=== PATIENT | male | born 1940 | race Caucasian/White ===

== ENCOUNTER → 2017-02-13 | Outpatient (CLI) | payer MEDICARE ==
[2017-02-13 13:22] LABS: BASOPHIL# 0.1 X10e3 (0-0.3); BASOPHIL% 0.7 % (0-2.5); EOSINOPHIL# 0.2 X10e3 (0-0.7); EOSINOPHIL% 2.1 % (0.0-7.0); HEMATOCRIT 41.6 % (38.0-50.0); HEMOGLOBIN 13.6 gm/dL (13.0-16.0); LYMPHOCYTE# 2.6 X10e3 (1.0-3.5); LYMPHOCYTE% 22.9 % (17.0-45.0); MEAN CELL VOLUME 83.3 FL (83-96); MEAN CORPUSCULAR HEMOGLOBIN 27.2 PG (28-34); MEAN CORPUSCULAR HGB CONC 32.6 g/dL (30-36); MEAN PLATELET VOLUME 7.2 FL (6.5-11.5); MONOCYTE# 0.8 X10e3 (0-1.0); MONOCYTE% 7.2 % (3.0-12.0); NEUTROPHIL# 7.5 X10e3 (1.5-7.1); NEUTROPHIL% 67.1 % (40-75); PLATELET COUNT 350 X10e3 (140-420); RED CELL DISTRIBUTION WIDTH 15.1 % (11.0-15.5); WHITE BLOOD COUNT 11.2 X10e3 (4.0-10.5)
[2017-02-13 13:23] LABS: DIFF IND YES
[2017-02-13 13:31] LABS: URINE APPEARANCE CLEAR; URINE BILIRUBIN NEG (NEG); URINE BLOOD 1+ (NEG); URINE COLOR YELLOW; URINE GLUCOSE NEG (NEG); URINE KETONE NEG (NEG); URINE LEUKOCYTE ESTERASE 1+ (NEG); URINE NITRATE NEG (NEG); URINE PROTEIN NEG (NEG); URINE SPECIFIC GRAVITY 1.013 (1.003-1.035); URINE UROBILINOGEN 0.2 MG/DL (NEG)
[2017-02-13 13:34] LABS: CREATININE,RANDOM URINE 94 mg/dL; TOTAL PROTEIN,RANDOM URINE 14 mg/dl (<10); URBCS1 AUWI 0-2 /[HPF] (0-2); URINE BACTERIA AUWI NEG (NEGATIVE); URINE SQUAMOUS EPITHELIAL CELL NONE SEEN /[HPF]
[2017-02-13 13:35] LABS: URINE SOURCE CLEAN CATCH
[2017-02-13 13:42] LABS: ALBUMIN SERUM 3.5 g/dL (3.5-5.0); ALKALINE PHOSPHATASE 132 U/L (32-92); ALT (SGPT) 37 U/L (10-40); AST (SGOT) 20 U/L (10-42); BILIRUBIN,TOTAL 0.3 mg/dL (0.2-2.0); BLOOD UREA NITROGEN 53 mg/dL (9-23); BUN/CREATININE RATIO 19.62; CALCIUM SERUM 9.6 mg/dL (8.4-10.2); CARBON DIOXIDE 23 mmol/L (22-31); CHLORIDE 98 mmol/L (100-111); CREATININE SERUM 2.7 mg/dL (0.6-1.4); GLOM FILT RATE Estimated 21.9 mL/min (>60); GLUCOSE FASTING 122 mg/dL (70-110); PHOSPHOROUS 4.2 mg/dL (2.5-4.6); POTASSIUM 4.6 mmol/L (3.5-5.1); PROTEIN TOTAL SERUM 7.6 g/dL (6.0-8.3); SODIUM 132 mmol/L (135-145)
[2017-02-13 13:43] LABS: BILIRUBIN, DIRECT <0.1 mg/dL (0.0-0.2)
[2017-02-13 14:03] LABS: ANISOCYTOSIS SL; PLATELET ESTIMATE NORMAL (NORMAL)
[2017-02-15 03:39] LABS: COMPLEMENT C3 181 mg/dL (90-180); COMPLEMENT C4 40 mg/dL (16-47)
[2017-02-19 14:25] LABS: ANA SCREEN Negative (Negative); CALCIUM (PTHINTACT) 9.6 mg/dL (8.6-10.3); MYELOPEROXIDASE AB (PNL) <1.0 AI (<1.0); PROTEINASE-3 AB (PNL) <1.0 AI (<1.0); SPE A1GLOB (PNL) 0.5 g/dL (0.2-0.3); SPE A2GLOB (PNL) 1.2 g/dL (0.5-0.9); SPE ALB (PNL) 3.3 g/dL (3.8-4.8); SPE BETA 1 GLOBULIN 0.5 g/dL (0.4-0.6); SPE BETA 2 GLOBULIN 0.4 g/dL (0.2-0.5); SPE GAMMA (PNL) 1.3 g/dL (0.8-1.7); SPETP (PNL) 7.1 g/dL (6.1-8.1)
== END | disposition home or self-care (01) ==
LOC: CLAB 12:26
PROVIDERS: Internal Medicine Nephrology
DX: N18.3 Chronic kidney disease, stage 3 (moderate) (principal)
CPT/HCPCS: 36415; 80053; 81003; 82248; 82310; 82570; 83520; 83970; 84100; 84156; 84165; 85025; 86021; 86038; 86039; 86160; 86334; 87086

== ENCOUNTER → 2017-02-23 | Outpatient (CLI) | payer MEDICARE ==
--- NOTE | ~2017-02-23 | US77 ---
[facility] A Service of [facility] RADIOLOGY TEXT RESULTS PATIENT: CHERYL FENTON LOCATION: [facility] : 40 UNIT #: [id number] AGE: [address]: Ignacio Chatterjee MD SEX: M ORDER DR: [id number] [facility] [address] [place], [place] [address] [id number] O MR#: [id number] Acc #: [id number] NAME: CHERYL FENTON : 1940 SEX: M STUDY DATE/TIME: 02/23/2017 13:06 UNIT: [facility] ROOM: STUDY DESCRIPTION: US Kidney Bilateral Complete Attending Physician: Ignacio Chatterjee M.D. Referring Physician: Ignacio Chatterjee M.D. Ordering Physician: Ignacio Chatterjee M.D. Primary Care Physician: Vipul Quintero M.D. MEDICAL IMAGING REPORT This report is preliminary unless electronic signature is present EXAM Renal ultrasound INDICATIONS Chronic kidney disease stage III PROCEDURE Berkowitz-scale and Doppler imaging of the kidneys and bladder COMPARISON None FINDINGS Right kidney measures 10.9 cm. Cortical thickness, 11 mm. There is right-sided hydronephrosis. 7.7 cm cyst exophytic from the right kidney. Unremarkable bladder. Left kidney measures 12.9 cm in length. Cortical thickness 11 mm. Slightly increased echotexture in both kidneys. No hydronephrosis. Incidentally noted distal abdominal aorta measures up to 4.4 cm. IMPRESSION 1. Right-sided hydronephrosis. Right cortical thickness measures within normal limits but does appear to be thickened suggesting some changes of longstanding hydronephrosis. 2. Both kidneys show slightly increased echotexture in keeping with changes of chronic renal disease. 3. Distal abdominal aortic aneurysm. Dictated by... Jac Lundy M.D. THIS IS AN ELECTRONICALLY VERIFIED REPORT [facility] A Service of [facility] RADIOLOGY TEXT RESULTS PATIENT: CHERYL FENTON LOCATION: [facility] : 40 UNIT #: [id number] AGE: [address]: Ignacio Chatterjee MD SEX: M ORDER DR: Jac Lundy M.D. at 02/24/2017 7:08 AM EED/to TD: 02/23/2017 20:05 JOB #: [id number] MEDICAL IMAGING REPORT Page 1 of 1 COPY
== END | disposition home or self-care (01) ==
LOC: CGUS 12:16
DX: N18.3 Chronic kidney disease, stage 3 (moderate) (principal); R93.421 Abnormal radiologic findings on diagnostic imaging of right kidney; N13.30 Unspecified hydronephrosis; R93.422 Abnormal radiologic findings on diagnostic imaging of left kidney; I71.4 Abdominal aortic aneurysm, without rupture
CPT/HCPCS: 76770

== ENCOUNTER → 2017-05-04 | Outpatient (CLI) | payer MEDICARE ==
[2017-05-04 11:33] LABS: BUN/CREATININE RATIO 16.31; CALCIUM SERUM 9.6 mg/dL (8.4-10.2); CREATININE SERUM 1.9 mg/dL (0.6-1.4); GLOM FILT RATE Estimated 33.5 mL/min (>60); POTASSIUM 4.7 mmol/L (3.5-5.1)
== END | disposition home or self-care (01) ==
LOC: CLAB 10:34
PROVIDERS: Urology
DX: N13.30 Unspecified hydronephrosis (principal)
CPT/HCPCS: 36415; 80048